=== PATIENT | female | born 1980 | race Caucasian/White ===

== ENCOUNTER 2017-04-18 10:42 | Emergency (ER) | payer MEDICAID ==
[2017-04-18 11:04] VITALS: BP 115/90
== END 2017-04-18 14:21 | disposition home or self-care (01) ==
LOC: ED 10:42
DX: S39.012A Strain of muscle, fascia and tendon of lower back, initial encounter (principal); V49.40XA Driver injured in collision with unspecified motor vehicles in traffic accident, initial encounter; Y93.89 Activity, other specified; Y99.8 Other external cause status; Y92.89 Other specified places as the place of occurrence of the external cause
CPT/HCPCS: J1885

== ENCOUNTER 2018-01-29 15:09 | Emergency (ER) | payer MEDICAID ==
[~2018-01-29] VITALS: Ht 162.6 cm; Wt 89.3 kg
[2018-01-29 15:30] VITALS: BP 125/74; Ht 162.6 cm; Wt 89.3 kg
[2018-01-29 16:18] LABS: BASOPHIL % 0.4 % (0-2); CALCIUM 8.3 mg/dL (8.5-10.1); CREATININE SERUM 1.2 mg/dL (0.6-1.0); PLATELET COUNT 297 x10^3mcL (130-400); POTASSIUM SERUM 4.2 mmol/L (3.5-5.1)
[2018-01-29 16:22] LABS: RED CELL DISTRIBUTION WIDTH 14.6 % (11.5-14.5)
[2018-01-29 16:23] LABS: ALBUMIN 3.5 g/dL (3.4-5.0); BILIRUBIN TOTAL 0.25 mg/dL (0.20-1.00); TOTAL PROTEIN, SERUM 7.1 g/dL (6.4-8.2)
== END 2018-01-29 16:44 | disposition left against medical advice (07) ==
LOC: ED 15:09
PROVIDERS: Emergency Medicine
DX: R19.7 Diarrhea, unspecified (principal); R10.9 Unspecified abdominal pain; R11.10 Vomiting, unspecified
CPT/HCPCS: 36415; 83880; 87046; 87046-59; J2405; J7030

== ENCOUNTER 2018-08-30 15:31 | Emergency (ER) | payer MEDICAID ==
[~2018-08-30] VITALS: Ht 160 cm; Wt 92.1 kg
[2018-08-30 16:42] VITALS: BP 128/90
== END 2018-08-30 16:42 | disposition home or self-care (01) ==
LOC: ED 15:31
DX: J20.9 Acute bronchitis, unspecified (principal)

== ENCOUNTER 2018-12-04 10:31 | Emergency (ER) | payer MEDICAID ==
[~2018-12-04] VITALS: Ht 162.6 cm; Wt 92.1 kg
[2018-12-04 10:33] VITALS: Ht 162.6 cm; Wt 92.1 kg
[2018-12-04 11:22] LABS: BASOPHIL % 0.8 % (0-2); PLATELET COUNT 333 x10^3mcL (130-400); RED CELL DISTRIBUTION WIDTH 13.8 % (11.5-14.5)
[2018-12-04 11:42] LABS: ALBUMIN 3.6 g/dL (3.4-5.0); ALKALINE PHOSPHATASE 79 U/L (46-116); ALT/SGPT 83 U/L (14-59); AST/SGOT 44 U/L (15-37); BILIRUBIN TOTAL 0.2 mg/dL (0.20-1.00); CALCIUM 8.9 mg/dL (8.5-10.1); CARBON DIOXIDE 27.9 mmol/L (21-32); CHLORIDE SERUM 103 mmol/L (98-107); CREATININE SERUM 0.8 mg/dL (0.6-1.0); GFR1 > 60 mL/min; GLUCOSE SERUM 89 mg/dL (74-106); POTASSIUM SERUM 4.6 mmol/L (3.5-5.1); SODIUM SERUM 137 mmol/L (136-145); TOTAL PROTEIN, SERUM 7.7 g/dL (6.4-8.2)
[2018-12-04 11:47] VITALS: BP 112/74
== END 2018-12-04 12:45 | disposition home or self-care (01) ==
LOC: ED 10:31
PROVIDERS: Emergency Medicine
DX: R07.89 Other chest pain (principal); R06.02 Shortness of breath
CPT/HCPCS: 36415; 85378; J1885; Q0092

== ENCOUNTER 2019-01-25 08:28 | Emergency (ER) | payer MEDICAID ==
[~2019-01-25] VITALS: Ht 162.6 cm; Wt 90.3 kg
[2019-01-25 08:34] VITALS: BP 116/93; Ht 162.6 cm; Wt 90.3 kg
[2019-01-25 10:30] LABS: CALCIUM 9.2 mg/dL (8.5-10.1); CARBON DIOXIDE 27.7 mmol/L (21-32); CHLORIDE SERUM 103 mmol/L (98-107); CREATININE SERUM 0.7 mg/dL (0.6-1.0); GFR1 > 60 mL/min; GLUCOSE SERUM 102 mg/dL (74-106); POTASSIUM SERUM 4.2 mmol/L (3.5-5.1); SODIUM SERUM 138 mmol/L (136-145)
[2019-01-25 10:35] LABS: ALBUMIN 3.6 g/dL (3.4-5.0); ALKALINE PHOSPHATASE 80 U/L (46-116); ALT/SGPT 141 U/L (14-59); AST/SGOT 88 U/L (15-37); BILIRUBIN TOTAL 0.3 mg/dL (0.20-1.00); TOTAL PROTEIN, SERUM 7.7 g/dL (6.4-8.2)
[2019-01-25 10:41] LABS: BASOPHIL % 4.6 % (0-2); PLATELET COUNT 307 x10^3mcL (130-400)
== END 2019-01-25 11:00 | disposition home or self-care (01) ==
LOC: ED 08:28
PROVIDERS: Emergency Medicine
DX: R11.10 Vomiting, unspecified (principal); R19.7 Diarrhea, unspecified; R10.84 Generalized abdominal pain
CPT/HCPCS: 36415

== ENCOUNTER 2019-06-14 13:27 | Emergency (ER) | payer MEDICAID ==
[~2019-06-14] VITALS: Ht 162.6 cm; Wt 90.7 kg
[2019-06-14 13:41] VITALS: Ht 162.6 cm; Wt 90.7 kg
[2019-06-14 14:46] LABS: BASOPHIL % 1.2 % (0-2); PLATELET COUNT 297 x10^3mcL (130-400); RED CELL DISTRIBUTION WIDTH 13.9 % (11.5-14.5)
[2019-06-14 14:52] LABS: CALCIUM 8.1 mg/dL (8.5-10.1); CARBON DIOXIDE 30.4 mmol/L (21-32); CHLORIDE SERUM 102 mmol/L (98-107); CREATININE SERUM 0.7 mg/dL (0.6-1.0); GFR1 > 60 mL/min; GLUCOSE SERUM 88 mg/dL (74-106); POTASSIUM SERUM 4.2 mmol/L (3.5-5.1); SODIUM SERUM 139 mmol/L (136-145)
[2019-06-14 14:57] LABS: ALBUMIN 3.4 g/dL (3.4-5.0); ALKALINE PHOSPHATASE 72 U/L (46-116); ALT/SGPT 51 U/L (14-59); AST/SGOT 25 U/L (15-37); BILIRUBIN TOTAL 0.2 mg/dL (0.20-1.00); LIPASE 95 IU/L (73-393); TOTAL PROTEIN, SERUM 7.4 g/dL (6.4-8.2)
[2019-06-14 15:36] VITALS: BP 122/62
== END 2019-06-14 15:36 | disposition home or self-care (01) ==
LOC: ED 13:27
PROVIDERS: Emergency Medicine
DX: R11.10 Vomiting, unspecified (principal); K21.9 Gastro-esophageal reflux disease without esophagitis
CPT/HCPCS: 36415; Q0092

== ENCOUNTER 2019-07-16 14:58 | Emergency (ER) | payer MEDICAID ==
[~2019-07-16] VITALS: Ht 162.6 cm; Wt 95.3 kg
[2019-07-16 16:06] LABS: BASOPHIL % 0.7 % (0-2); PLATELET COUNT 312 x10^3mcL (130-400); RED CELL DISTRIBUTION WIDTH 14.1 % (11.5-14.5)
[2019-07-16 16:21] LABS: CALCIUM 8.4 mg/dL (8.5-10.1); CARBON DIOXIDE 29.6 mmol/L (21-32); CHLORIDE SERUM 101 mmol/L (98-107); CREATININE SERUM 0.7 mg/dL (0.6-1.0); GFR1 > 60 mL/min; GLUCOSE SERUM 103 mg/dL (74-106); POTASSIUM SERUM 3.9 mmol/L (3.5-5.1); SODIUM SERUM 138 mmol/L (136-145)
[2019-07-16 16:26] LABS: ALBUMIN 3.6 g/dL (3.4-5.0); ALKALINE PHOSPHATASE 80 U/L (46-116); ALT/SGPT 77 U/L (14-59); AST/SGOT 39 U/L (15-37); BILIRUBIN TOTAL 0.22 mg/dL (0.20-1.00); TOTAL PROTEIN, SERUM 7.6 g/dL (6.4-8.2)
[2019-07-16 17:42] VITALS: BP 120/80
== END 2019-07-16 17:42 | disposition home or self-care (01) ==
LOC: ED 14:58
PROVIDERS: Emergency Medicine
DX: N83.202 Unspecified ovarian cyst, left side (principal); K21.9 Gastro-esophageal reflux disease without esophagitis
CPT/HCPCS: 36415; 87491; 87591

== ENCOUNTER 2019-08-29 19:04 | Emergency (ER) | payer MEDICAID | END 2019-08-29 19:36 | disposition left against medical advice (07) | LOC: ED 19:04 | DX: Z53.21 Procedure and treatment not carried out due to patient leaving prior to being seen by health care provider (principal) ==

== ENCOUNTER 2020-08-31 08:29 | Emergency (ER) | payer MEDICAID, SELFPAY ==
[~2020-08-31] VITALS: Ht 162.6 cm; Wt 90.7 kg
[2020-08-31 08:31] VITALS: Ht 162.6 cm; Wt 90.7 kg
[2020-08-31 08:40] VITALS: BP 113/86
== END 2020-08-31 08:40 | disposition left against medical advice (07) ==
LOC: ED 08:29
DX: Z53.21 Procedure and treatment not carried out due to patient leaving prior to being seen by health care provider (principal)